=== PATIENT | male | born 1950 | race Caucasian/White ===

== ENCOUNTER 2017-10-15 11:08 | Day surgery (SDC) | payer MEDICARE, BC ==
[2017-10-15] MEDS ORDERED: Propofol 200 MG/20 ML SDV ONE ×2 (11:45→11:48)
[2017-10-15] MEDS ORDERED: Midazolam 1 MG/ML 2 ML SDV ONE ×2 (11:45→11:48)
[2017-10-15] MEDS ORDERED: Sodium Chloride 0.9% 10 ML Syringe FLUSH PRN (11:45)
[2017-10-15] MEDS ORDERED: Lactated Ringers 1,000 ML IV SCH (11:45)
[2017-10-15] MEDS ORDERED: fentaNYL 100 MCG/2 ML SDV ONE ×2 (11:45→11:48)
--- NOTE | 2017-10-15 11:47 | PCM.HPR ---
H & P Addendum review - H & P Addendum Review Date of Original H & P: 10/12/17 Date Reviewed: 10/15/17 Time Reviewed: 11:46 Patient was Examined: No Changes
--- NOTE | 2017-10-15 12:42 | PCM.OPNOTE ---
- General Post-Op/Procedure Note Date of Surgery/Procedure: 10/15/17 Operative Procedure(s): Colonoscopy with polypectomy Findings: Many polyps Sig tics Pre Op Diagnosis: Pos FIT Post-Op Diagnosis: Same Anesthesia Technique: DAVID Primary Surgeon: Regis Caraballo Anesthesia Provider: Linnea Cheatham Pathology: Polyps Complications: None Condition: Good
--- NOTE | 2017-10-15 14:35 | OR ---
Date of Procedure: 10/15/2017 PREOPERATIVE DIAGNOSIS: Positive fecal immunochemical test. POSTOPERATIVE DIAGNOSES: 1. Numerous colon polyps. 2. Sigmoid diverticulosis. PROCEDURE: Colonoscopy with polypectomy. DESCRIPTION OF PROCEDURE: The patient was brought to the procedure room, where he was placed on his left side and IV sedation administered. Digital rectal exam was performed which was normal. Colonoscope was inserted and advanced to the level of the cecum with some difficulty getting through a tortuous colon, requiring pressure on the abdomen. I was able to reach the cecum, which was confirmed by identifying the appendiceal lumen and ileocecal valve. Prep was fair to good with some thick dark liquid remaining in many areas that possibly limited detection of some small polyps. In the cecum was a 6 mm sessile polyp, removed with the cautery snare and retrieved in the polyp trap. At the hepatic flexure was numerous polyps. More proximally was a cluster of three 6 mm sessile polyps, removed with the cautery snare and retrieved in the polyp trap. A little bit further along the hepatic flexure was a cluster of 3 larger sessile polyps. I could not place the snare around these. These were up to 1 cm in diameter on a fold. One of them had central depression and has concern for malignancy. I took 2 biopsies from this one and sent for pathology review. I did not attempt to remove the other 2 adjacent ones since they will likely need to be lifted with saline and removed with a snare. If malignancy is present in the one I biopsied, these would be removed with a right colectomy. The transverse and descending colon were normal. Sigmoid colon had some diverticula present. At 30 cm from the anal verge was an 8 mm sessile polyp, removed with the cautery snare and retrieved in the polyp trap. At 20 cm were 2 adjacent 6 mm polyps, removed with the hot biopsy forceps. Lastly, in the rectum was a large 12 mm adenomatous polyp that was partially pedunculated, located 13 cm from the anal verge. This was removed with the cautery snare and retrieved and sent for pathology review. Retroflexion was normal. Air was removed and the scope withdrawn. The patient tolerated the procedure well and returned to recovery in stable condition. I will follow up with the patient in 2 weeks for review of pathology report. If malignancy is seen in the hepatic flexure polyp, right colectomy would be recommended. If this is benign, I would refer him to Gastroenterology where the polyps at the hepatic flexure could be removed endoscopically. LYNN MENDENHALL MD /[id number]
[2017-10-15 18:28] VITALS: BP 126/90
== END 2017-10-15 14:32 | disposition home or self-care (01) ==
LOC: LL.SDS 11:08
PROVIDERS: ATTEND Surgery
DX: D12.0 Benign neoplasm of cecum (principal); D12.2 Benign neoplasm of ascending colon; D12.5 Benign neoplasm of sigmoid colon; D12.8 Benign neoplasm of rectum; K63.5 Polyp of colon; K57.30 Diverticulosis of large intestine without perforation or abscess without bleeding; Z79.899 Other long term (current) drug therapy
CPT/HCPCS: J2250; J2704; J3010; J7120

== ENCOUNTER 2019-12-24 10:26 | Emergency (ER) | payer MEDICARE, BC ==
[2019-12-24 10:56] VITALS: BP 167/92; PULSE 88
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
== END 2019-12-24 12:20 | disposition home or self-care (01) ==
LOC: LL.ED 10:26
DX: S43.102A Unspecified dislocation of left acromioclavicular joint, initial encounter (principal); Z79.899 Other long term (current) drug therapy; V86.56XA Driver of dirt bike or motor/cross bike injured in nontraffic accident, initial encounter
CPT/HCPCS: 73020-LT; 73030-LT; 99283

== ENCOUNTER 2020-04-05 19:15 | Emergency (ER) | payer OTHER ==
[2020-04-05 19:20] VITALS: BP 149/80; PULSE 82
[2020-04-05] MEDS ORDERED: Pantoprazole 40 MG Vial IVPUSH ONE (19:35)
[2020-04-05] MEDS ORDERED: Famotidine 20 MG/2 ML SDV IVPUSH ONE (19:35)
[2020-04-05] MEDS ORDERED: Lactated Ringers 1,000 ML IV ONE (19:35)
[2020-04-05] MEDS ORDERED: Ondansetron 4 MG/2 ML SDV IVPUSH ONE ×2 (19:35→20:22)
--- NOTE | 2020-04-05 19:35 | EDM.PDOC ---
ED HPI GENERAL MEDICAL PROBLEM - General Chief Complaint: Gastrointestinal Problem Stated Complaint: Heartburn upper epigastric pain Time Seen by Provider: 04/05/20 19:30 Source of Information: Reports: Patient, Old Records ([facility] chart/EMR) History Limitations: Reports: No Limitations - History of Present Illness INITIAL COMMENTS - FREE TEXT/NARRATIVE: The patient was brought to the emergency room via private automobile for evaluation of 07/22 epigastric and retrosternal "burning" with symptoms starting at about 1800 hrs. this evening after he ate some pork ribs with at least 20 episodes of emesis since that time. He has had an apparent long history of fatty food intolerance over the last several years with symptoms usually easily resolved with OTC antacids. Patient did take OTC Tums prior to arrival with no improvement of his symptoms. No recent history of other abdominal pain, diarrhea, melena, gross hematochezia, etc. with normal bowel movement earlier this morning. He denies any gross hematuria, colic, or other UTI symptoms. The patient denies any chest pain/pressure, heart flutter, dizziness, orthostasis, orthopnea, diaphoresis, paresthesias, recent decreased exercise tolerance, or any other anginal-type symptoms. The patient also denies any recent fever, cough, wheezing, dyspnea, etc.. He denies any known exposure to infection, food poisoning, etc. Onset: Today, Gradual Onset Date: 04/05/20 Onset Time: 18:00 Duration: Constant, Getting Worse Location: Reports: Chest (Retrosternal burning as above), Abdomen (As above). Denies: Head, Face, Neck, Back, Upper Extremity, Left, Upper Extremity, Right, Radiates to Quality: Reports: Burning, Same as Previous Episode Severity: Mild Improves with: Reports: None Worsens with: Reports: None Context: Reports: Other (As above). Denies: Sick Contact, Trauma Associated Symptoms: Reports: Nausea/Vomiting. Denies: Confusion, Chest Pain, Cough, Diaphoresis, Fever/Chills, Headaches, Loss of Appetite, Malaise, Rash, Shortness of Breath, Syncope, Weakness Treatments TRANSFERRER: Reports: Other Medication(s) (As above) Upper Abdomen Pain Score (Numeric/FACES): 1 Epigastric Pain Score (Numeric/FACES): 1 - Related Data Allergies Allergy/AdvReac Type Severity Reaction Status Date / Time No Known Allergies Allergy Verified 10/15/17 11:18 Home Meds: Home Meds Calcium Carbonate [Tums] 500 mg PO ASDIRECTED PRN 04/05/20 [History] Omeprazole 20 mg PO BIDAC #30 cap.sr 04/05/20 [Rx] Past Medical History HEENT History: Reports: Allergic Rhinitis, Cataract, Hard of Hearing, Impaired Vision, Sinusitis, Other (See Below). Denies: Glaucoma, Macular Degeneration, Otitis Media, Retinal Detachment Other HEENT History: Patient does wear glasses. Moderate bilateral presbycusis. All year-round allergic rhinitis and sinusitis. Cardiovascular History: Reports: Other (See Below). Denies: Afib, Aneurysm, Arrhythmia, Blood Clots/VTE/DVT, CAD, Cardiomyopathy, Heart Murmur, High Cholesterol, Hypertension, Syncope Other Cardiovascular History: The patient does not know his cholesterol status. Occasional elevated blood pressures with no known history of true hypertension. Respiratory History: Reports: None. Denies: Asthma, Bronchitis, Recurrent, COPD, Intubation, Previous, PE, Pneumothorax, Sleep Apnea, TB Gastrointestinal History: Reports: Colon Polyp, Fatty Liver, GERD, Hemorrhoids, Hiatal Hernia, Other (See Below). Denies: Bowel Obstruction, Celiac Disease, Cholelithiasis, Chronic Constipation, Chronic Diarrhea, Fecal Incontinence, Gastritis, Hepatitis, Inflammatory Bowel Disease, Irritable Bowel Syndrome, Jaundice, Pancreatitis Other Gastrointestinal History: History of diffuse multiple colonic polyps mostly tubular adenomas with 1 additional hyperplastic colonic polyp and serous adenoma noted with a total of 8 polyps throughout the colon by colonoscopy in October 2017 as below. Sigmoid diverticulosis. Genitourinary History: Reports: BPH, Prostate Disorder, Other (See Below). Denies: Acute Renal Failure, Chronic Renal Insuffiency, Renal Calculus, Retention, Urinary, STD, Urinary Incontinence, UTI, Recurrent Other Genitourinary History: Prostate cancer as below. Bilateral extrarenal pelvises and benign right renal cysts by CT scan in 2019 as below. Musculoskeletal History: Reports: Arthritis, Fracture, Osteoarthritis, Osteoporosis, Other (See Below). Denies: Amputation, Back Pain, Chronic, Gout, Neck Pain, Chronic, RA, SLE Other Musculoskeletal History: T8 and T9 vertebral body compression fractures. Left wrist Colles' fracture on 01/26/2001. Neurological History: Reports: Neuropathy, Peripheral. Denies: Cerebral Aneurysms, Concussion, CVA, Headaches, Chronic, Head Trauma, Migraines, MS, Parkinson's, Seizure, TIA Psychiatric History: Reports: Anxiety, Depression, Other (See Below). Denies: Abuse, Victim of, ADD, ADHD, Addiction, Psych Hospitalization(s), PTSD, Suicide Attempt, Suicidal Ideation Other Psychiatric History: Insomnia. Endocrine/Metabolic History: Reports: Osteopenia, Osteoporosis. Denies: Diabetes, Type I, Diabetes, Type II, Diabetes Mellitus, Type 3c, Hypothyroidism, IDDM Hematologic History: Reports: None. Denies: Anemia, Blood Transfusion(s), Iron Deficiency Immunologic History: Reports: None. Denies: AIDS, HIV, SLE Oncologic (Cancer) History: Reports: Prostate, Other (See Below). Denies: Basal Cell Carcinoma, Colon, Hodgkin's Lymphoma, Leukemia, Lymphoma, Non-Hodgkin's Lymphoma, Squamous Cell Carcinoma Other Oncologic History: Prostate cancer with complete prostatectomy as below with no additional chemotherapy or radiation therapy required. Dermatologic History: Reports: Psoriasis. Denies: Eczema - Infectious Disease History Infectious Disease History: Reports: Chicken Pox, Measles. Denies: C-Difficile, Meningitis, Mononucleosis, MRSA, Mumps, Pertussis (Whooping Cough), Rheumatic Fever, Rubella, Scarlet Fever, Shingles, TB, VRE - Past Surgical History Head Surgeries/Procedures: Reports: None HEENT Surgical History: Reports: Cataract Surgery, Oral Surgery, Other (See Below). Denies: Adenoidectomy, Eye Surgery, Laser Surgery, LASIK, Myringotomy w Tube(s), Naso-Sinus Surgery, Tonsillectomy Other HEENT Surgeries/Procedures: Bilateral cataract surgery in 2019. Multiple teeth extractions. Cardiovascular Surgical History: Reports: None. Denies: Varicose Respiratory Surgical History: Reports: None. Denies: Thoracentesis GI Surgical History: Reports: Colonoscopy, Polypectomy, Other (See Below). Denies: Appendectomy, Cholecystectomy, EGD, Hernia, Abdominal, Hernia, Inguinal, Hernia Repair/Other Other GI Surgeries/Procedures: Last colonoscopy in 2019 at the [facility] with previous colonoscopy at [facility] and initial colonoscopy with multiple polypectomies on 10/15/2017 as above. Male Surgical History: Reports: Prostate Biopsy, Prostatectomy, Other (See Below). Denies: Circumcision, Vasectomy Other Male Surgeries/Procedures: Prostatectomy secondary to nonmetastatic prostate cancer in 2018. Endocrine Surgical History: Reports: None. Denies: Thyroid Biopsy Neurological Surgical History: Reports: None. Denies: C-Spine, Discectomy, Laminectomy, Lumbar Spine, Sacral Spine, Spinal Fusion, Thoracic Spine, Vertebroplasty Musculoskeletal Surgical History: Reports: Ganglion Cyst. Denies: Arthroscopic Procedure, Carpal Tunnel, Joint Replacement, ORIF, Shoulder Surgery Oncologic Surgical History: Reports: None Dermatological Surgical History: Reports: None - Past Imaging History Past Imaging History: Reports: Bone Scan (Whole-body bone scan on 09/30/2018- for metastases.), CAT Scan (CT scan of the abdomen and pelvis on 09/27/2018.) Social & Family History - Family History HEENT: Reports: None. Denies: Glaucoma, Macular Degeneration, Retinal Detachment Cardiac: Reports: Arrhythmia, CAD, PA, Pacemaker, Stent, Other (See Below). Denies: Afib, Aneurysm, Blood Clots/VTE/DVT, Bypass, Heart Failure, Heart Murmur, High Cholesterol, Hypertension, Syncope Other Cardiac Family History: Father with fatal PA at age 92 with previous pacemaker at time of initial PA in his mid 60s. Maternal grandmother with fatal PTCA/stent procedure in her 80s. Respiratory: Reports: None. Denies: Asthma, COPD, PE, Pneumothorax, Sleep Apnea GI: Reports: None. Denies: Celiac Disease, Cholelithiasis, Colon Polyps, GERD, GI bleed, Inflammatory Bowel Disease, Irritable Bowel Syndrome, Pancreatitis, PUD : Reports: Renal Calculus, Other (See Below). Denies: Renal Disease/Insufficiency Other Family History: Father with urolithiasis. OBGYN: Reports: None. Denies: Endometriosis, Recurrent Spontaneous Musculoskeletal: Reports: None. Denies: Gout, RA, SLE Neurological: Reports: Alzheimers Disease, Dementia, Other (See Below). Denies: CVA, Migraines, MS, Parkinson's, Seizure, TIA Other Neurological Family History: Father with organic brain syndrome in his early 90s. Psychiatric: Reports: None. Denies: Abuse, Victim of, ADD, ADHD, Anxiety, Depression, Psych Hospitalization(s), PTSD, Suicide Attempt Endocrine/Metabolic: Reports: None. Denies: Diabetes, Type I, Diabetes, type II, Diabetes Mellitus, Type 3c, Hypothyroidism, IDDM Hematologic: Reports: None. Denies: SLE Immunologic: Reports: None. Denies: AIDS, HIV, SLE Dermatologic: Reports: None. Denies: Eczema, Psoriasis Oncologic: Reports: Prostate, Other (See Below). Denies: Colon, Hodgkin's Lymphoma, Leukemia, Lymphoma, Metastatic, Non-Hodgkin's Lymphoma, Pancreatic Other Oncologic Family History: Father, brother, and paternal uncle with prostate cancer. Patient denies family history of pancreatic cancer despite previous medical records. - Tobacco Use Smoking Status *Q: Former Smoker Tobacco Use Within Last Twelve Months: No Years of Tobacco use: 11 Packs/Tins Daily: 0.1 Packs/Tins Daily Comment: 1 pack/week with additional cigar use. Smoked between ages 11 and 22. Also used chewing tobacco between ages 18 in his late 20s. Used Tobacco, but Quit: Yes Smoking Cessation Information Provided To Patient: No Second Hand Smoke Exposure: No Second Hand Smoke Education Provided: No - Caffeine Use Caffeine Use: Reports: Coffee (7 cups/day), Soda (1 soda 2 times per week.), Tea (Occasional in the winter months). Denies: Energy Drinks - Alcohol Use Alcohol Use History: Yes Days Per Week of Alcohol Use: 7 Number of Drinks Per Day: 4 Number of Drinks Per Day Comment: Mixture of different types of alcohol including beer, wine, and mixed drinks. No previous DWIs, problems with alcohol abuse, etc. 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 ED EXAM, GI/ABD - Physical Exam Exam: See Below Exam Limited By: No Limitations General Appearance: Alert, WD/WN, No Apparent Distress Eyes: Bilateral: Normal Appearance (No nystagmus. The patient is wearing glasses.), EOMI Ears: Normal Canal, Normal TMs, Hearing Loss (Stable by history moderate bilateral presbycusis) Nose: Normal Inspection, Normal Mucosa, No Blood. No: Clear Rhinorrhea Throat/Mouth: Normal Inspection, Normal Lips, Normal Teeth (Multiple missing teeth with no caries), Normal Gums, Normal Oropharynx, Normal Voice, No Airway Compromise. No: Dysphagia, Inflammation Head: Atraumatic, Normocephalic. No: Facial Swelling, Facial Tenderness, Sinus Tenderness Neck: Normal Inspection, Supple, Non-Tender, Full Range of Motion. No: Lymphadenopathy (L), Lymphadenopathy (R), Thyromegaly Respiratory/Chest: No Respiratory Distress, Lungs Clear, Normal Breath Sounds, No Accessory Muscle Use, Chest Non-Tender. No: Pleural Rub, Retractions Cardiovascular: Normal Peripheral Pulses, Regular Rate, Rhythm, No Edema, No Gallop, No JVD, No Murmur, No Rub. No: Gallop/S3, Gallop/S4, Friction Rub GI/Abdominal Exam: Normal Bowel Sounds, Soft, Non-Tender, No Organomegaly, No Distention, No Abnormal Bruit, No Mass, Pelvis Stable. No: Guarding (Male) Exam: Deferred Rectal (Males) Exam: Deferred Back Exam: Full Range of Motion, Other (Mild scoliosis). No: CVA Tenderness (L), CVA Tenderness (R), Muscle Spasm, Paraspinal Tenderness, Vertebral Tenderness Extremities: Normal Inspection, Normal Range of Motion, Non-Tender, No Pedal Edema, Normal Capillary Refill. No: Earl's Sign Neurological: Alert, Oriented, CN II-XII Intact, Normal Cognition, Normal Gait, Normal Reflexes, No Motor/Sensory Deficits Psychiatric: Normal Affect, Normal Mood Skin Exam: Warm, Dry, Intact, Normal Color, No Rash. No: Diaphoretic, Ecchymosis, Jaundice, Pallor, Petechiae, Wound/Incision Lymphatic: No Adenopathy Course - Vital Signs Last Recorded V/S: Last Vital Signs Temp 36.8 C 04/05/20 19: Pulse 82 04/05/20 19:19 Resp 12 04/05/20 19:19 BP 149/80 H 04/05/20 19:19 Pulse Ox 98 04/05/20 19:19 Vital Signs - 24 hr 04/05/20 19:19 Temperature [ 36.8 C Temporal] Pulse, 82 Peripheral [ Right Pulse Oximetry] Respiratory 12 Rate Blood Pressure 149/80 H [Right Upper Arm] O2 Sat by Pulse 98 Oximetry - Orders/Labs/Meds Orders: Active Orders 24 hr Category Date Time Status Peripheral IV Care [RC] . DIRECTED Care 04/05/20 19:36 Active Nothing Per Oral Diet [DIET] Diet 04/05/20 Breakfast Active Abdomen Pelvis w Cont [CT] Stat Exams 04/05/20 20:59 Taken Abdomen Series w Chest 1V [CR] Stat Exams 04/05/20 19:35 Taken Lactated Ringers [Ringers, Lactated] 1,000 ml Med 04/05/20 21:15 Active IV ASDIRECTED Sodium Chloride 0.9% [Saline Flush] Med 04/05/20 19:35 Active 10 ml FLUSH ASDIRECTED PRN Obtain Past Medical Record [OM.PC] Urgent Oth 04/05/20 19:35 Active Peripheral IV Insertion Adult [OM.PC] Stat Oth 04/05/20 19:35 Ordered Resuscitation Status Stat Resus Stat 04/05/20 19:35 Ordered Medication Orders Lactated Ringer's (Ringers, Lactated) 1,000 mls @ 100 mls/hr IV ASDIRECTED BENJI Last Admin: 04/05/20 21:16 Dose: 100 mls/hr Documented by: JOHANA Sodium Chloride (Saline Flush) 10 ml FLUSH ASDIRECTED PRN PRN Reason: Keep Vein Open Last Admin: 04/05/20 22:00 Dose: 10 ml Documented by: Admin: 04/05/20 20:57 Dose: 10 ml Documented by: Admin: 04/05/20 20:41 Dose: 10 ml Documented by: Admin: 04/05/20 19:53 Dose: 10 ml Documented by: JOHANA Labs: Laboratory Tests 04/05/20 04/05/20 04/05/20 Range/Units 19:40 19:40 19:40 WBC 5.6 (4.0-10.2) K/uL RBC 5.09 (4.33-5.41) M/uL Hgb 16.5 (13.1-16.8) g/dL Hct 47.7 (39.0-49.0) % MCV 93.7 (84.0-98.0) fL MCH 32.4 (28.2-33.3) pg MCHC 34.6 (31.7-36.0) g/dL RDW 13.2 (11.2-14.1) % Plt Count 199 (150-350) K/uL Neut % (Auto) 62.7 (45.0-80.0) % Lymph % (Auto) 20.9 (10.0-50.0) % Crenshaw % (Auto) 8.9 (2.0-14.0) % Eos % (Auto) 6.4 H (0.0-5.0) % Baso % (Auto) 1.1 (0.0-2.0) % Neut # (Auto) 3.54 (1.40-7.00) K/uL Lymph # (Auto) 1.18 (0.50-3.50) K/uL Crenshaw # (Auto) 0.50 (0.00-1.00) K/uL Eos # (Auto) 0.36 (0.00-0.50) K/uL Baso # (Auto) 0.06 (0.00-0.20) K/uL PT 9.4 L (9.5-12.0) SEC INR 0.9 APTT 25.9 (24.5-32.8) SEC Sodium 140 (136-145) mmol/L Potassium 3.9 (3.5-5.1) mmol/L Chloride 104 (98-107) mmol/L Carbon Dioxide 24.6 (21.0-32.0) mmol/L BUN 8 (7-18) mg/dL Creatinine 0.91 (0.51-1.17) mg/dL Est Cr Clr Drug Dosing TNP Estimated GFR (MDRD) > 60 mL/min Glucose 110 H (74-106) mg/dL Lactic Acid (0.4-2.0) mmol/L Uric Acid 6.2 (2.6-7.2) mg/dL Calcium 9.0 (8.5-10.1) mg/dL Magnesium 2.1 (1.8-2.4) mg/dL Total Bilirubin 0.9 (0.2-1.0) mg/dL AST 39 H (15-37) U/L ALT 43 (12-78) U/L Alkaline Phosphatase 76 (46-116) IU/L Total Protein 7.5 (6.4-8.2) g/dL Albumin 4.2 (3.4-5.0) g/dL Amylase 81 (25-115) U/L Lipase 166 (73-393) U/L 04/05/20 Range/Units 19:40 WBC (4.0-10.2) K/uL RBC (4.33-5.41) M/uL Hgb (13.1-16.8) g/dL Hct (39.0-49.0) % MCV (84.0-98.0) fL MCH (28.2-33.3) pg MCHC (31.7-36.0) g/dL RDW (11.2-14.1) % Plt Count (150-350) K/uL Neut % (Auto) (45.0-80.0) % Lymph % (Auto) (10.0-50.0) % Crenshaw % (Auto) (2.0-14.0) % Eos % (Auto) (0.0-5.0) % Baso % (Auto) (0.0-2.0) % Neut # (Auto) (1.40-7.00) K/uL Lymph # (Auto) (0.50-3.50) K/uL Crenshaw # (Auto) (0.00-1.00) K/uL Eos # (Auto) (0.00-0.50) K/uL Baso # (Auto) (0.00-0.20) K/uL PT (9.5-12.0) SEC INR APTT (24.5-32.8) SEC Sodium (136-145) mmol/L Potassium (3.5-5.1) mmol/L Chloride (98-107) mmol/L Carbon Dioxide (21.0-32.0) mmol/L BUN (7-18) mg/dL Creatinine (0.51-1.17) mg/dL Est Cr Clr Drug Dosing Estimated GFR (MDRD) mL/min Glucose (74-106) mg/dL Lactic Acid 2.5 H (0.4-2.0) mmol/L Uric Acid (2.6-7.2) mg/dL Calcium (8.5-10.1) mg/dL Magnesium (1.8-2.4) mg/dL Total Bilirubin (0.2-1.0) mg/dL AST (15-37) U/L ALT (12-78) U/L Alkaline Phosphatase (46-116) IU/L Total Protein (6.4-8.2) g/dL Albumin (3.4-5.0) g/dL Amylase (25-115) U/L Lipase (73-393) U/L Meds: Medications Generic Name Dose Route Start Last Admin Trade Name Freq PRN Reason Stop Dose Admin Lactated Ringer's 1,000 mls @ 100 mls/hr 04/05/20 21:15 04/05/20 21:16 Ringers, Lactated IV 100 mls/hr ASDIRECTED BENJI Administration Sodium Chloride 10 ml 04/05/20 19:35 04/05/20 22:00 Saline Flush FLUSH 10 ml ASDIRECTED PRN Administration Keep Vein Open Discontinued Medications Generic Name Dose Route Start Last Admin Trade Name Freq PRN Reason Stop Dose Admin Al Hydroxide/Mg Hydroxide 30 ml 04/05/20 20:22 04/05/20 20:40 Gi Cocktail PO 04/05/20 20:23 30 ml ONETIME ONE Administration Famotidine 40 mg 04/05/20 19:35 04/05/20 19:53 Pepcid IVPUSH 04/05/20 19:36 40 mg ONETIME ONE Administration Lactated Ringer's 1,000 mls @ 999 mls/hr 04/05/20 19:35 04/05/20 19:58 Ringers, Lactated IV 04/05/20 20:35 999 mls/hr .BOLUS ONE Administration Iopamidol Confirm 04/05/20 21:19 04/05/20 22:00 Isovue-300 (61%) Administered 04/05/20 21:20 100 ml Dose Administration 100 ml .ROUTE .STK-MED ONE Metoclopramide HCl 10 mg 04/05/20 20:52 04/05/20 20:57 Reglan IVPUSH 04/05/20 20:53 10 mg ONETIME ONE Administration Ondansetron HCl 4 mg 04/05/20 19:35 04/05/20 19:54 Zofran IVPUSH 04/05/20 19:36 4 mg ONETIME ONE Administration Ondansetron HCl 4 mg 04/05/20 20:22 04/05/20 20:41 Zofran IVPUSH 04/05/20 20:23 4 mg ONETIME ONE Administration Pantoprazole Sodium 40 mg 04/05/20 19:35 04/05/20 19:53 Protonix Iv IVPUSH 04/05/20 19:36 40 mg ONETIME ONE Administration - Radiology Interpretation Free Text/Narrative:: Acute abdominal x-rays shows mild diffuse stool and increased bowel gaseous pattern with possible occasional mild fluid levels consistent with developing il eus. No obstruction or free air. Mild pulmonary obstructive disease and calcification of the aortic valve with no cardiomegaly, CHF, pulmonary infiltrates, pneumothorax, etc. Moderate osteoarthritic changes with mild scoliosis in the lumbar spine. Official radiological report agrees with the above findings with additional 7 mm calcification in the right upper abdomen consistent with possible urolithiasis. Telephone consultation at 2205 hrs. with the radiology department at [facility]. Preliminary verbal report of CT scan of the abdomen and pelvis with IV contrast was negative for acute changes with incidental small right nonincarcerated inguinal hernia and hiatal hernia with otherwise normal gallbladder and no evidence of urolithiasis. CT Results Date: 04/05/20 CT Results Time: 22:05 Departure - Departure Time of Disposition: 23:00 Disposition: Home, Self-Care 01 Condition: Good Clinical Impression: Elevated LFTs, Elevated lactic acid level, Elevated blood pressure reading GERD (gastroesophageal reflux disease) Qualifiers: Esophagitis presence: without esophagitis Qualified Code(s): K21.9 - Gastro- esophageal reflux disease without esophagitis Abdominal pain Qualifiers: Abdominal location: epigastric Qualified Code(s): R10.13 - Epigastric pain Osteoarthritis Qualifiers: Osteoarthritis location: multiple joints Osteoarthritis type: primary Qualified Code(s): M89.49 - Other hypertrophic osteoarthropathy, multiple sites - Discharge Information *PRESCRIPTION DRUG MONITORING PROGRAM REVIEWED*: Not Applicable *COPY OF PRESCRIPTION DRUG MONITORING REPORT IN PATIENT ITZ: Not Applicable Prescriptions: Omeprazole 20 mg PO BIDAC #30 cap.sr Instructions: Abdominal Pain, Adult, [id number], Fat and Cholesterol Restricted Eating Plan, [id number] Referrals: PCP,None [Primary Care Provider] - Forms: ED Department Discharge Additional Instructions: 1. Follow-up with a local provider early tomorrow morning for recommended reevaluation, CBC, and lactic acid level with blood work results to be obtained before you leave that office. Consider hospitalization, if lactic acid elevation, etc. persist. 2. Otherwise, see if you can have your yearly physical exam moved up to about 10-14 days for reevaluation, including repeat CBC, comprehensive metabolic panel, amylase, lipase and lipid panel along with already scheduled blood work. Consider scheduling a HIDA scan at that time secondary to possible dysfunctional gallbladder. 3. [place] diet including encouragement of oral fluids such as sports drinks, etc. for 24-48 hours as directed. Advance to strict heart healthy and diverticulosis diet as tolerated thereafter. 4. Immediately after this visit verify that your cellular telephone's voicemail has been activated and is empty. Also verify that your home telephone's answering machine is operating properly and has space to receive messages. Note that it is sometimes necessary for us to be able to contact you at a later date to discuss your medical care. 5. Please remember that we are ALWAYS here for you and want to answer any questions you may have. Feel free to call the hospital any time and we call you back HONG. Sepsis Event Note (ED) - Evaluation Sepsis Screening Result: No Definite Risk - Focused Exam Vital Signs: Vital Signs Temp Pulse Resp BP Pulse Ox 04/05/20 19:19 36.8 C 82 12 149/80 H 98 - Problem List & Annotations (1) Abdominal pain SNOMED Code(s): 36200251 Code(s): R10.9 - UNSPECIFIED ABDOMINAL PAIN Status: Acute Priority: High Current Visit: Yes Onset Date: 04/05/20 Annotation/Comment:: Secondary to history of fatty food intolerance suspicions of possible dysfunctional gallbladder in spite of normal CT scan of the abdomen pelvis as above. Close follow-up by his regular provider at the [facility] in [place] as per discharge instru ctions. Strict compliance with low-fat, low-cholesterol diet strongly encouraged with information provided at discharge. Otherwise initiate high-dose Prilosec therapy with symptomatic relief as per discharge instructions. Note possible beginning borderline ileus with refractory symptoms requiring extensive medical therapy in the emergency room. Secondary to refractory symptoms CT scan of the abdomen pelvis was ordered as above. Patient's symptoms were completely resolved at time of discharge. Qualifiers: Abdominal location: epigastric Qualified Code(s): R10.13 - Epigastric pain (2) Elevated LFTs SNOMED Code(s): 007467700, 887108259 Code(s): R79.89 - OTHER SPECIFIED ABNORMAL FINDINGS OF BLOOD CHEMISTRY Status: Acute Priority: High Current Visit: Yes Onset Date: 04/05/20 Annotation/Comment:: Likely secondary to fatty liver. Lipid panel recommended at time of patient's upcoming yearly physical exam as per discharge inst ructions. Note to moderate alcohol intake. (3) Elevated lactic acid level SNOMED Code(s): 4574562 Code(s): R79.89 - OTHER SPECIFIED ABNORMAL FINDINGS OF BLOOD CHEMISTRY Status: Acute Priority: High Current Visit: Yes Onset Date: 04/05/20 Annotation/Comment:: No fever, leukocytosis, etc. with no clinical evidence of sepsis. Various therapeutic options were discussed with patient with no hosp italization at this time. Patient was given a 1 L IV bolus of lactated Ringer's with continuation of IV fluids during his emergency room care. Close follow-up by local provider including repeat lactic acid level, etc. tomorrow morning as per discharge instructions. Urine specimen could not be obtained. No indication for antibiotics or blood cultures at this time. (4) GERD (gastroesophageal reflux disease) SNOMED Code(s): 968882626 Code(s): K21.9 - GASTRO-ESOPHAGEAL REFLUX DISEASE WITHOUT ESOPHAGITIS Status: Chronic Priority: Medium Current Visit: Yes Annotation/Comment:: Patient was aggressively treated with high-dose IV Pepcid and IV Protonix in the emergency room as above. Continue OTC high-dose Prilosec as above. Further GI work-up including HIDA scan and possible further EGD depending on his clinical course. Qualifiers: Esophagitis presence: without esophagitis Qualified Code(s): K21.9 - Gastro-esophageal reflux disease without esophagitis (5) Osteoarthritis SNOMED Code(s): 630804183 Code(s): M19.90 - UNSPECIFIED OSTEOARTHRITIS, UNSPECIFIED SITE Status: Chronic Priority: Medium Current Visit: Yes Annotation/Comment:: Stable by history Qualifiers: Osteoarthritis location: multiple joints Osteoarthritis type: primary Qualified Code(s): M89.49 - Other hypertrophic osteoarthropathy, multiple sites (6) Elevated blood pressure reading SNOMED Code(s): 30968796 Code(s): R03.0 - ELEVATED BLOOD-PRESSURE READING, W/O DIAGNOSIS OF HTN Status: Chronic Priority: Medium Current Visit: Yes Annotation/Comment:: Blood pressure somewhat elevated in the emergency room. Continue to observe closely by his regular providers. Note history of intermittent blood pressure problems with no true hypertension diagnosed to this point. - Problem List Review Problem List Initiated/Reviewed/Updated: Yes - My Orders Last 24 Hours: My Active Orders 04/05/20 Breakfast Nothing Per Oral Diet [DIET] 04/05/20 19:35 Abdomen Series w Chest 1V [CR] Stat Sodium Chloride 0.9% [Saline Flush] 10 ml FLUSH ASDIRECTED PRN Obtain Past Medical Record [OM.PC] Urgent Peripheral IV Insertion Adult [OM.PC] Stat Resuscitation Status Stat 04/05/20 19:36 Peripheral IV Care [RC] . DIRECTED 04/05/20 20:59 Abdomen Pelvis w Cont [CT] Stat 04/05/20 21:15 Lactated Ringers [Ringers, Lactated] 1,000 ml IV ASDIRECTED - Assessment/Plan Last 24 Hours: My Active Orders 04/05/20 Breakfast Nothing Per Oral Diet [DIET] 04/05/20 19:35 Abdomen Series w Chest 1V [CR] Stat Sodium Chloride 0.9% [Saline Flush] 10 ml FLUSH ASDIRECTED PRN Obtain Past Medical Record [OM.PC] Urgent Peripheral IV Insertion Adult [OM.PC] Stat Resuscitation Status Stat 04/05/20 19:36 Peripheral IV Care [RC] . DIRECTED 04/05/20 20:59 Abdomen Pelvis w Cont [CT] Stat 04/05/20 21:15 Lactated Ringers [Ringers, Lactated] 1,000 ml IV ASDIRECTED Assessment:: As above Plan: As above. Extensive precautions were given to the patient, who is in agreement with the treatment plan. See Patient Instructions for further treatment and plan.
[2020-04-05] MEDS: Sodium Chloride 0.9% 10 ML Syringe FLUSH PRN ×4 (19:53→22:00)
[2020-04-05 20:15] LABS: CHLORIDE,CL 104 mmol/L (98-107); SODIUM,NA 140 mmol/L (136-145)
[2020-04-05 20:22] LABS: PTT,PARTIAL THROMBOPLSTIN TIME 25.9 SEC (24.5-32.8)
[2020-04-05] MEDS ORDERED: GI Cocktail Oral Solution 30 ML PO ONE (20:22)
[2020-04-05] MEDS ORDERED: Metoclopramide 10 MG/2 ML SDV IVPUSH ONE (20:52)
[2020-04-05] MEDS ORDERED: Lactated Ringers 1,000 ML IV SCH (21:15)
[2020-04-05] MEDS ORDERED: Iopamidol 612 MG/ML 100 ML Bottle ONE (21:19)
== END 2020-04-05 23:03 | disposition home or self-care (01) ==
LOC: LL.ED 19:15
DX: K21.9 Gastro-esophageal reflux disease without esophagitis (principal); M89.49 Other hypertrophic osteoarthropathy, multiple sites; R03.0 Elevated blood-pressure reading, without diagnosis of hypertension; R79.89 Other specified abnormal findings of blood chemistry; R74.0 Nonspecific elevation of levels of transaminase and lactic acid dehydrogenase [LDH]; M41.86 Other forms of scoliosis, lumbar region; Z79.899 Other long term (current) drug therapy; Z87.891 Personal history of nicotine dependence
CPT/HCPCS: 36415; 74022; 74177; 80053; 82150; 83605; 83690; 83735; 84550; 85025; 85610; 85730; 96361; 96374; 96375; 96376; 99284; A9270; C9113; J2405; J2765; J3490; J7120; Q9967; 99283

== ENCOUNTER 2024-05-27 22:06 | Emergency (ER) | payer MEDICARE, BC ==
[2024-05-27 22:32] LABS: BASOPHILS ABSOLUTE AUTO 0.05 K/uL (0.00-0.20); BASOPHILS PERCENT AUTO 0.7 % (0.0-2.0); EOSINOPHILS ABSOLUTE AUTO 0.37 K/uL (0.00-0.50); EOSINOPHILS PERCENT AUTO 5.5 % (0.0-5.0); HEMATOCRIT 42.3 % (39.0-49.0); HEMOGLOBIN 14.5 g/dL (13.1-16.8); LYMPHOCYTES ABSOLUTE AUTO 0.87 K/uL (0.50-3.50); MEAN CORPUSCULAR HEMOGLOBIN 31.9 pg (28.2-33.3); MEAN CORPUSCULAR HGB CONC 34.3 g/dL (31.7-36.0); MONOCYTES ABSOLUTE AUTO 0.79 K/uL (0.00-1.00); MONOCYTES PERCENT AUTO 11.8 % (2.0-14.0); NEUTROPHILS ABSOLUTE AUTO 4.59 K/uL (1.40-7.00); PLATELET COUNT,PLT 184 K/uL (150-350); RED BLOOD CELL COUNT 4.55 M/uL (4.33-5.41); RED CELL DISTRIBUTION WIDTH 13.5 % (11.2-14.1); WHITE BLOOD CELL COUNT,WBC 6.7 K/uL (4.0-10.2)
[2024-05-27 22:49] LABS: ALANINE AMINOTRANSFERASE,ALT 27 U/L (12-78); ALBUMIN 3.8 g/dL (3.4-5.0); ALKALINE PHOSPHATASE 78 IU/L (46-116); ANION GAP 8.9 meq/L (7-15); ASPARTATE AMNIOTRANSFERASE,AST 19 U/L (15-37); BILIRUBIN TOTAL 0.9 mg/dL (0.2-1.0); BLOOD UREA NITROGEN,BUN 9 mg/dL (7-18); CALCIUM 9.1 mg/dL (8.5-10.1); CARBON DIOXIDE,CO2 27.1 mmol/L (21.0-32.0); CHLORIDE,CL 106 mmol/L (98-107); ESTIMATED GFR 78 mL/min (>=60); GLUCOSE RANDOM 112 mg/dL (70-99); POTASSIUM,K 3.8 mmol/L (3.5-5.1); SODIUM,NA 142 mmol/L (136-145)
[2024-05-28] MEDS: predniSONE 20 MG Tab PO ONE (00:03)
[2024-05-28] MEDS: Benzonatate 100 MG Cap PO ONE (00:03)
[2024-05-28] MEDS: Codeine/guaiFENesin 10-100 MG/5 ML Syrup 5 ML Cup PO ONE (00:04)
[2024-05-28] MEDS: Albuterol 6.7 GM Inhaler INH ONE (00:04)
[2024-05-28] MEDS: GUAIFENESIN PO ONE (00:05)
[2024-05-28] MEDS: Take Home: predniSONE 20 MG, 4 Tab Pack PO ONE (00:05)
[2024-05-28] MEDS: Take Home: Benzonatate 100 MG, 6 Cap Pack PO ONE (00:05)
[2024-05-28] MEDS: [UNRECOGNIZED DRUG - OTHER] PO ONE (00:05)
[2024-05-28 00:18] VITALS: BP 138/75; PULSE 76
== END 2024-05-28 00:10 | disposition home or self-care (01) ==
LOC: LL.ED 22:06
DX: J06.9 Acute upper respiratory infection, unspecified (principal); B97.89 Other viral agents as the cause of diseases classified elsewhere; I48.91 Unspecified atrial fibrillation; I10 Essential (primary) hypertension; K21.9 Gastro-esophageal reflux disease without esophagitis; Z79.899 Other long term (current) drug therapy
CPT/HCPCS: 36415; 71046; 80053; 85025; 87428-QW; 99284; A9270-GY; J7512